=== PATIENT | male | born 1990 | race Caucasian/White ===

== ENCOUNTER 2022-02-21 19:17 | Emergency (ER) | payer OTHER, SELFPAY ==
--- NOTE | ~2022-02-21 | XR_ITS ---
EXAM: [id number] HISTORY: pain MID TO RT SIDED PAIN X 5 DAYS, NKI COMPARISON: None available FINDINGS: Craniocervical association and atlantoaxial joint are normal. No prevertebral soft tissue swelling. The vertebral body heights are maintained. Moderate disc space narrowing at C5-6. Normal ve rtebral body alignment. Reversal of the cervical lordosis as can occur with positioning or spasm. Nor mal facets and posterior elements. IMPRESSION: No acute fracture or traumatic malalignment detected in the cervical spine. Reviewed, dictated and finalized at location K.
[2022-02-21 19:42] VITALS: BP 147/95; PULSE 85; RESP 16; TEMP 36.4; O2SAT 99
--- NOTE | 2022-02-21 20:08 | ED.NECK ---
HPI - Neck Pain/Injury General Chief Complaint: Neck Pain/Injury Stated Complaint: neck pain x 4 days Time Seen by Provider: 02/21/22 19:55 History of Present Illness HPI Narrative: 31-year-old female presents to the emergency room for evaluation of neck pain. Patient states 3 days ago he woke up with soreness on the right side of his neck, and the inability to look to the left or bends his neck to the right. Patient denies any injury or trauma to the area. Patient denies any difficulty swallowing Related Data Allergies Allergy/AdvReac Type Severity Reaction Status Date / Time No Known Allergies Allergy Mild Unverified 05/19/15 20:19 Review of Systems Review of Systems: CONSTITUTIONAL: Denies fever, chills, or sweats. EYES: Denies visual changes, redness, or discharge. ENT: Denies rhinorrhea, congestion, sore throat, or otalgia. CARDIOVASCULAR: Denies chest pain, palpitations, or edema. RESPIRATORY: Denies cough or dyspnea. GASTROINTESTINAL: Denies abdominal pain, nausea, vomiting, or diarrhea. GENITOURINARY: Denies dysuria or hematuria. SKIN: Denies rash or itching. MUSCULOSKELETAL: Reports neck pain NEUROLOGIC: Denies headache, numbness, dizziness, or weakness. PSYCHIATRIC: Denies anxiety or depression. Exam Narrative: GENERAL: Well-appearing, well-nourished, and in no acute distress. HEAD: Normocephalic, atraumatic. EYES: PERRLA and EOMI. NECK: Supple. No adenopathy or masses. No carotid bruits or JVD CHEST: Clear to auscultation. No respiratory distress. No wheezes rales or rhonchi HEART: Regular rate and rhythm. No murmur heard. Normal peripheral pulses. ABDOMEN: Soft, nontender, nondistended, normal active bowel sounds. EXTREMITIES: Normal range of motion. No edema. BACK: C-spine: Midline tenderness,. No bony abnormalities, no step-offs, limited range of motion with left lateral bend and right rotation. Tenderness over the right trapezius muscle SKIN: Warm, dry, no rash. NEURO: No focal deficits. Alert and oriented x3. PSYCH: Normal mood and affect. Course Vital Signs Vital signs: Vital Signs Temperature 36.4 C 02/21/22 19:42 Pulse Rate 85 02/21/22 19:42 Respiratory Rate 16 02/21/22 19:42 Blood Pressure 147/95 H 02/21/22 19:42 Pulse Oximetry 99 02/21/22 19:42 Temperature 36.4 C 02/21/22 19:42 Pulse Rate 85 02/21/22 19:42 Respiratory Rate 16 02/21/22 19:42 Blood Pressure 147/95 H 02/21/22 19:42 Pulse Oximetry 99 02/21/22 19:42 Discharge Plan Discharge Clinical Impression: Acute cervical myofascial strain Qualifiers: Encounter type: initial encounter Qualified Code(s): S16.1XXA - Strain of muscle, fascia and tendon at neck level, initial encounter Patient Disposition: Home, Self-Care Condition: Stable Instructions: Antibiotic Form, Cervical Strain (ED) Prescriptions: New methocarbamol 750 mg tablet 750 mg PO TID Qty: 21 RF: 0 Follow-up/Referrals: Lopez,RAFA Kaplan [Primary Care Provider] - Time of Disposition: 20:48
[2022-02-21] MEDS: KETOROLAC (*BKC) 60 MG/2 ML VIAL IM (20:41)
[2022-02-21] MEDS: methocarbamoL 500 MG TABLET PO (20:42)
== END 2022-02-21 21:04 | disposition home or self-care (01) ==
PROVIDERS: Emergency Provider Nurse Practitioner Family; PCP Physician Assistant
DX: S16.1XXA Strain of muscle, fascia and tendon at neck level, initial encounter (principal); X58.XXXA Exposure to other specified factors, initial encounter
CPT/HCPCS: 72040; 96372; 99283; A9270; J1885

== ENCOUNTER 2025-05-07 10:38 | Outpatient (CLI) | payer BC, SELFPAY ==
--- NOTE | ~2025-05-07 | US_ITS ---
US soft tissue LE LT 05/07/2025 10:58 Indication: Localized swelling in the left foot Procedure: High-resolution ultrasound of the left midfoot and the area of palpable concern Comparison: No prior studies for comparison. Findings: In the area of palpable concern there is an oval hypoechoic mass measuring 4.1 x 2.3 x 0.7 cm with prominent internal vascularity. Impression: 1: Slightly irregular shaped hypoechoic foot mass in the left midfoot and the area of palpable concer n. There is considerable internal vascularity. Differential diagnosis includes benign soft tissue foreign plasms is including hemangioma, schwannoma/neurofibroma, giant cell tumor of tendon sheath, plantar f ibromatosis and malignant soft tissue neoplasms such as soft tissue sarcoma, malignant peripheral ner ve sheath tumor and metastatic lesions. Inflammatory etiologies such as foreign body granuloma, and g outy tophus are additional considerations. Reviewed, dictated and finalized at location A. Impression: 1: Slightly irregular shaped hypoechoic foot mass in the left midfoot and the a kim of palpable concern. There is considerable internal vascularity. Differenti al diagnosis includes benign soft tissue neoplasms is including hemangioma, minerva wannoma/neurofibroma, giant cell tumor of tendon sheath, plantar fibromatosis a nd malignant soft tissue neoplasms such as soft tissue sarcoma, malignant perip heral nerve sheath tumor and metastatic lesions. Inflammatory etiologies such a s foreign body granuloma, and gouty tophus are additional considerations.
--- NOTE | ~2025-05-07 | XR_ITS ---
XR foot LT min 3V Ordering provider: Josue Baeza, RAFA History: . Localized swelling, mass and lump, L lower limb . Comparison: None. FINDINGS: BONES: No acute fracture or dislocation. Small bony fragment near to the medial malleolus most likely nonunited apophysis or old fracture. Small bony fragment also seen near to the cuboid bone. Evaluation for tenderness in the area advised. JOINT SPACES: Normal. No tarsal coalition. SOFT TISSUES: Soft tissue swelling seen in the distal foot opposite the metatarsophalangeal joints w hich may indicate cellulitis. Clinical evaluation advised. IMPRESSION: Small bony fragment near to the cuboid bone seen in the lateral view. Evaluation for tenderness in th e area advised. No acute osseous abnormality left foot. Possible cellulitis in the distal plantar aspect. Reviewed, dictated and finalized at location A. IMPRESSION: Small bony fragment near to the cuboid bone seen in the lateral view. Evaluatio n for tenderness in the area advised. No acute osseous abnormality left foot. Possible cellulitis in the distal plantar aspect.
== END 2025-05-07 10:39 | disposition home or self-care (01) ==
PROVIDERS: PCP Physician Assistant Medical; Visit Provider Physician Assistant Medical
DX: R22.42 Localized swelling, mass and lump, left lower limb (principal)
CPT/HCPCS: 73630; 76882

== ENCOUNTER 2025-07-21 07:09 | Outpatient (CLI) | payer BC, SELFPAY ==
--- NOTE | ~2025-07-21 | MR_ITS ---
EXAMINATION: MR foot LT wo con DATE: 07/21/2025 07:57 INDICATION: Soft tissue mass at the left foot TECHNIQUE: Magnetic resonance imaging (MRI) of the left mid/hindfoot and ankle was performed without intravenous contrast. Sequences included sagittal T1- weighted FSE, sagittal fluid sensitive FSE STIR, coronal PD-weighted FS FSE, coronal T1-weighted FSE, axial PD-weighted FS FSE, and axial PD-weighted FSE. COMPARISON: Left foot radiographs and ultrasound dated 05/07/2025 FINDINGS: Heterotopic ossification along portions of the anterior and posterior tibial attachment of the deep deltoid ligament and along the anterior talofibular ligament the lateral ankle consistent with chronic medial and lateral ankle sprains. Bone alignment is normal with normal marrow signal throughout. No acute fracture or pathologic marrow replacing process. 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 Physiologic amount fluid in the joint spaces with no abnormal fluid collections. Small Achilles calcaneal spurs calcaneal insertions of the distal Achilles tendon. There is prominent fusiform thickening and increased signal along the plantar aponeurosis centered plantar to the first tarsal metatarsal joint which measures 4.5 cm in length and 2.8 x 1.3 cm in maximal orthogonal dimensions consistent with a plantar fibroma. Remaining flexor and extensor tendons of the foot and ankle are normal. Visualized intrinsic musculature of the foot is unremarkable. IMPRESSION: 1. 4.5 x 2.8 x 1.3 cm fusiform mass along the plantar aponeurosis most likely representing a plantar fibroma. Differential would include focal scarring related chronic partial tear or less likely sarcoma. 2. Heterotopic ossicles along the medial and lateral malleoli likely sequela of chronic medial and lateral ankle sprains. Reviewed, dictated and finalized at location A. IMPRESSION: 1. 4.5 x 2.8 x 1.3 cm fusiform mass along the plantar aponeurosis most likely r epresenting a plantar fibroma. Differential would include focal scarring relate d chronic partial tear or less likely sarcoma. 2. Heterotopic ossicles along the medial and lateral malleoli likely sequela of chronic medial and lateral ankle sprains.
== END 2025-07-21 07:10 | disposition home or self-care (01) ==
PROVIDERS: PCP Physician Assistant Medical; Visit Provider Podiatrist Foot & Ankle Surgery
DX: M79.89 Other specified soft tissue disorders (principal)
CPT/HCPCS: 73718